=== PATIENT | female | born 1965 | race Caucasian/White ===

== ENCOUNTER 2016-11-12 23:40 | Emergency (ER) | payer OTHER ==
[2016-11-13 00:41] LABS: BASOPHIL % 0.3 % (0-2); PLATELET COUNT 361 x10^3mcL (130-400)
[2016-11-13 00:51] LABS: CALCIUM 8.6 mg/dL (8.5-10.1); CHLORIDE SERUM 103 mmol/L (98-107); GFR1 > 60 mL/min; GLUCOSE SERUM 97 mg/dL (74-106); POTASSIUM SERUM 3.6 mmol/L (3.5-5.1); SODIUM SERUM 141 mmol/L (136-145)
[2016-11-13 00:56] LABS: ALBUMIN 3.6 g/dL (3.4-5.0); ALKALINE PHOSPHATASE 103 U/L (46-116); ALT/SGPT 44 U/L (14-59); AST/SGOT 29 U/L (15-37); BILIRUBIN TOTAL 0.3 mg/dL (0.20-1.00); TOTAL PROTEIN, SERUM 7.6 g/dL (6.4-8.2)
[2016-11-13 02:19] VITALS: BP 138/74
== END 2016-11-13 02:12 | disposition home or self-care (01) ==
LOC: ED 23:40
PROVIDERS: Emergency Medicine
DX: R07.89 Other chest pain (principal)
CPT/HCPCS: 83880; J1885; Q0092

== ENCOUNTER 2017-01-07 16:14 | Emergency (ER) | payer OTHER ==
[2017-01-07 18:03] VITALS: BP 146/89
== END 2017-01-07 16:48 | disposition home or self-care (01) ==
LOC: ED 16:14
DX: S93.402A Sprain of unspecified ligament of left ankle, initial encounter (principal); S79.912A Unspecified injury of left hip, initial encounter; R03.0 Elevated blood-pressure reading, without diagnosis of hypertension; W01.0XXA Fall on same level from slipping, tripping and stumbling without subsequent striking against object, initial encounter; Y93.89 Activity, other specified; Y99.8 Other external cause status; Y92.89 Other specified places as the place of occurrence of the external cause

== ENCOUNTER 2017-07-09 14:32 | Emergency (ER) | payer OTHER ==
[~2017-07-09] VITALS: Ht 170.2 cm; Wt 97.5 kg
[2017-07-09 17:04] VITALS: BP 153/80
== END 2017-07-09 17:04 | disposition home or self-care (01) ==
LOC: ED 14:32
DX: R51 Headache (principal)
CPT/HCPCS: J1200; J1885; J2270; J2765; Q0162

== ENCOUNTER 2017-08-15 22:52 | Emergency (ER) | payer OTHER ==
[~2017-08-15] VITALS: Ht 170.2 cm; Wt 98.0 kg
[2017-08-15 23:07] VITALS: Ht 170.2 cm; Wt 98.0 kg
[2017-08-16 01:09] VITALS: BP 140/86
== END 2017-08-16 01:09 | disposition home or self-care (01) ==
LOC: ED 22:52
DX: J09.X2 Influenza due to identified novel influenza A virus with other respiratory manifestations (principal); G43.909 Migraine, unspecified, not intractable, without status migrainosus; Z96.642 Presence of left artificial hip joint
CPT/HCPCS: J7613

== ENCOUNTER 2018-01-14 18:52 | Emergency (ER) | payer OTHER ==
[~2018-01-14] VITALS: Ht 170.2 cm; Wt 92.5 kg
[2018-01-14 19:00] VITALS: Ht 170.2 cm; Wt 92.5 kg
[2018-01-14 21:06] VITALS: BP 141/83
== END 2018-01-14 21:06 | disposition home or self-care (01) ==
LOC: ED 18:52
DX: M25.512 Pain in left shoulder (principal); M25.561 Pain in right knee; G43.909 Migraine, unspecified, not intractable, without status migrainosus
CPT/HCPCS: J1885

== ENCOUNTER 2018-01-25 23:45 | Emergency (ER) | payer OTHER ==
[~2018-01-25] VITALS: Ht 170.2 cm; Wt 90.3 kg
[2018-01-26 00:19] VITALS: Ht 170.2 cm; Wt 90.3 kg
[2018-01-26 02:27] VITALS: BP 119/84
== END 2018-01-26 02:27 | disposition home or self-care (01) ==
LOC: ED 23:45
DX: S63.633A Sprain of interphalangeal joint of left middle finger, initial encounter (principal); S63.635A Sprain of interphalangeal joint of left ring finger, initial encounter; S63.637A Sprain of interphalangeal joint of left little finger, initial encounter; S63.632A Sprain of interphalangeal joint of right middle finger, initial encounter; S63.634A Sprain of interphalangeal joint of right ring finger, initial encounter; S63.636A Sprain of interphalangeal joint of right little finger, initial encounter; G43.909 Migraine, unspecified, not intractable, without status migrainosus; W20.8XXA Other cause of strike by thrown, projected or falling object, initial encounter; Y93.89 Activity, other specified; Y92.89 Other specified places as the place of occurrence of the external cause; Y99.8 Other external cause status

== ENCOUNTER 2019-02-12 20:45 | Emergency (ER) | payer OTHER ==
[~2019-02-12] VITALS: Ht 170.2 cm; Wt 100.7 kg
[2019-02-12 21:03] VITALS: Ht 170.2 cm; Wt 100.7 kg
[2019-02-12 22:48] VITALS: BP 150/85
== END 2019-02-12 22:48 | disposition home or self-care (01) ==
LOC: ED 20:45
DX: M25.562 Pain in left knee (principal); G43.909 Migraine, unspecified, not intractable, without status migrainosus; Z98.890 Other specified postprocedural states; W01.198A Fall on same level from slipping, tripping and stumbling with subsequent striking against other object, initial encounter; Y93.89 Activity, other specified; Y92.89 Other specified places as the place of occurrence of the external cause; Y99.8 Other external cause status

== ENCOUNTER 2019-04-14 20:55 | Emergency (ER) | payer OTHER ==
[~2019-04-14] VITALS: Ht 170.2 cm; Wt 97.5 kg
[2019-04-14 21:03] VITALS: Ht 170.2 cm; Wt 97.5 kg
[2019-04-15 00:18] VITALS: BP 172/99
== END 2019-04-15 00:15 | disposition home or self-care (01) ==
LOC: ED 20:55
DX: G43.909 Migraine, unspecified, not intractable, without status migrainosus (principal); Z98.890 Other specified postprocedural states
CPT/HCPCS: J0780; J1885; J3030